=== PATIENT | female | born 1945 | race Caucasian/White ===

== ENCOUNTER 2017-03-14 01:31 | Inpatient (IN) | payer MEDICARE, OTHER ==
[~2017-03-14] VITALS: Ht 170.2 cm; Wt 73.7 kg
[2017-03-14 01:53] LABS: HEMATOCRIT 41.9 % (34.6-47.8); HEMOGLOBIN 13.9 g/dL (11.7-16.4)
[2017-03-14] MEDS ORDERED: SODIUM CHLORIDE 0.9% 1,000ML IVBOLUS ONE (02:00)
[2017-03-14] MEDS ORDERED: THIAMINE 100MG TABLET PO ONE (02:00)
[2017-03-14 02:05] LABS: ASPARTATE AMINO TRANSFERASE 23 U/L (15-37); BLOOD UREA NITROGEN 32 mg/dL (7-18)
[2017-03-14 02:09] LABS: ACETAMINOPHEN < 2 mcg/mL (10-30)
[2017-03-14] MEDS ORDERED: THIAMINE 100MG TABLET ONE (02:11)
[2017-03-14 04:18] LABS: DAU SCREEN DISCLAIMER
[2017-03-14] MEDS ORDERED: ONDANSETRON 2MG/ML, 2ML IVPush PRN (04:30)
[2017-03-14] MEDS ORDERED: POTASSIUM CHLORIDE 20 MEQ in SODIUM CHLORIDE 0.9% 1,000 ML IV SCH (04:30)
[2017-03-14] MEDS ORDERED: BISACODYL 10 MG SUPP PR PRN (04:30)
[2017-03-14] MEDS ORDERED: POLYETHYLENE GLYCOL 17 GM PACKET PO PRN (04:30)
[2017-03-14] MEDS ORDERED: ACETAMINOPHEN 325 MG TABLET PO PRN (04:30)
[2017-03-14] MEDS ORDERED: DOCUSATE 100 MG CAPSULE PO PRN (04:30)
[2017-03-14 04:39] VITALS: BP 157/85
[2017-03-14] MEDS: ENOXAPARIN 40 MG/0.4 ML SQ SCH (05:11)
[2017-03-14 08:05] VITALS: BP 148/85
[2017-03-14] MEDS ORDERED: CEFTRIAXONE PMX 1GM/50ML 50 ML IV SCH (10:30)
[2017-03-14 13:00] VITALS: BP 144/86
[2017-03-14] MEDS: CIPROFLOXACIN 250 MG TABLET PO SCH (13:40)
[2017-03-14 18:35] VITALS: BP 165/94
[2017-03-15 00:35] VITALS: BP 142/79
[2017-03-15] MEDS: CIPROFLOXACIN 250 MG TABLET PO SCH ×2 (01:39→13:57)
[2017-03-15 05:22] LABS: HEMATOCRIT 39.9 % (34.6-47.8); HEMOGLOBIN 13.4 g/dL (11.7-16.4); WHITE BLOOD COUNT 6.9 x10^3/uL (3.4-10)
[2017-03-15 05:31] LABS: BLOOD UREA NITROGEN 26 mg/dL (7-18)
[2017-03-15] MEDS: ENOXAPARIN 40 MG/0.4 ML SQ SCH (07:36)
[2017-03-15 07:45] VITALS: BP 128/66
[2017-03-15] MEDS ORDERED: HALOPERIDOL 5 MG/ML IV PRN (10:30)
[2017-03-15 13:12] VITALS: BP 156/89
[2017-03-15 18:52] VITALS: BP 137/72
[2017-03-16] MEDS: CIPROFLOXACIN 250 MG TABLET PO SCH ×2 (01:00→14:00)
[2017-03-16 02:22] VITALS: BP 127/75
[2017-03-16 07:30] VITALS: BP 160/95
[2017-03-16] MEDS: ENOXAPARIN 40 MG/0.4 ML SQ SCH (08:52)
[2017-03-16 13:22] VITALS: BP 145/83
[2017-03-16 18:57] VITALS: BP 139/90
[2017-03-17 00:23] VITALS: BP 128/69
[2017-03-17] MEDS: CIPROFLOXACIN 250 MG TABLET PO SCH (02:28)
[2017-03-17 08:04] VITALS: BP 163/84
[2017-03-17] MEDS: ENOXAPARIN 40 MG/0.4 ML SQ SCH (08:08)
[2017-03-17 14:30] VITALS: BP 146/83
[2017-03-17 19:49] VITALS: BP 181/98
[2017-03-17] MEDS: AMOXICILLIN/CLAV 875-125MG TABLET PO SCH (20:30)
[2017-03-18 01:06] VITALS: BP 138/72
[2017-03-18 07:08] VITALS: BP 135/73
[2017-03-18] MEDS: ENOXAPARIN 40 MG/0.4 ML SQ SCH (08:37)
[2017-03-18] MEDS: AMOXICILLIN/CLAV 875-125MG TABLET PO SCH ×2 (08:37→22:30)
[2017-03-18 14:08] VITALS: BP 133/87
[2017-03-18] MEDS ORDERED: BISACODYL 10 MG SUPP PR PRN (14:30)
[2017-03-18] MEDS ORDERED: POLYETHYLENE GLYCOL 17 GM PACKET PO PRN (14:30)
[2017-03-18] MEDS ORDERED: ONDANSETRON 2MG/ML, 2ML IVPush PRN (14:30)
[2017-03-18] MEDS ORDERED: HALOPERIDOL 5 MG/ML IV PRN (14:30)
[2017-03-18] MEDS ORDERED: ACETAMINOPHEN 325 MG TABLET PO PRN (14:30)
[2017-03-18] MEDS ORDERED: DOCUSATE 100 MG CAPSULE PO PRN (14:30)
[2017-03-18 19:11] VITALS: BP 181/96
[2017-03-19 01:30] VITALS: BP 144/72
[2017-03-19 07:25] VITALS: BP 135/85
[2017-03-19] MEDS: ENOXAPARIN 40 MG/0.4 ML SQ SCH (08:00)
[2017-03-19] MEDS: AMOXICILLIN/CLAV 875-125MG TABLET PO SCH ×2 (09:25→20:06)
[2017-03-19 12:41] VITALS: BP 172/97
[2017-03-19 19:17] VITALS: BP 184/87
[2017-03-19 19:58] VITALS: BP 171/85
[2017-03-20 03:57] VITALS: BP 123/76
[2017-03-20 06:58] VITALS: BP 138/70
[2017-03-20] MEDS: ENOXAPARIN 40 MG/0.4 ML SQ SCH (08:00)
[2017-03-20] MEDS: AMOXICILLIN/CLAV 875-125MG TABLET PO SCH ×2 (08:58→21:22)
[2017-03-20 13:25] VITALS: BP 151/71
[2017-03-20 19:10] VITALS: BP 161/87
[2017-03-21 01:10] VITALS: BP 152/80
[2017-03-21 07:33] VITALS: BP 132/79
[2017-03-21] MEDS: ENOXAPARIN 40 MG/0.4 ML SQ SCH (07:49)
[2017-03-21] MEDS: AMOXICILLIN/CLAV 875-125MG TABLET PO SCH ×2 (07:49→20:14)
[2017-03-21 13:14] VITALS: BP 115/72
[2017-03-21 19:32] VITALS: BP 136/80
[2017-03-22 00:55] VITALS: BP 128/77
[2017-03-22] MEDS: ENOXAPARIN 40 MG/0.4 ML SQ SCH (08:05)
[2017-03-22] MEDS: AMOXICILLIN/CLAV 875-125MG TABLET PO SCH ×2 (08:05→20:16)
[2017-03-22 08:14] VITALS: BP 148/83
[2017-03-22 12:35] VITALS: BP 124/82
[2017-03-22 18:59] VITALS: BP 156/80
[2017-03-23 00:31] VITALS: BP 129/80
[2017-03-23] MEDS: ENOXAPARIN 40 MG/0.4 ML SQ SCH (08:02)
[2017-03-23] MEDS: AMOXICILLIN/CLAV 875-125MG TABLET PO SCH ×2 (08:02→20:59)
[2017-03-23 08:28] VITALS: BP 125/80
[2017-03-23 12:54] VITALS: BP 134/83
[2017-03-23 19:33] VITALS: BP 126/74
[2017-03-24 01:28] VITALS: BP 133/80
[2017-03-24 07:46] VITALS: BP 123/71
[2017-03-24] MEDS: AMOXICILLIN/CLAV 875-125MG TABLET PO SCH ×2 (08:29→21:01)
[2017-03-24] MEDS: ENOXAPARIN 40 MG/0.4 ML SQ SCH (08:30)
[2017-03-24 13:16] VITALS: BP 113/74
[2017-03-24 19:26] VITALS: BP 146/89
[2017-03-25 00:48] VITALS: BP 131/84
[2017-03-25 07:01] VITALS: BP 122/74
[2017-03-25] MEDS: AMOXICILLIN/CLAV 875-125MG TABLET PO SCH ×2 (08:26→21:03)
[2017-03-25] MEDS: ENOXAPARIN 40 MG/0.4 ML SQ SCH (08:26)
[2017-03-25 13:30] VITALS: BP 139/80
[2017-03-25 18:56] VITALS: BP 126/75
[2017-03-25] MEDS ORDERED: ACETAMINOPHEN 325 MG TABLET PO PRN (20:00)
[2017-03-25] MEDS ORDERED: BISACODYL 10 MG SUPP PR PRN (20:00)
[2017-03-25] MEDS ORDERED: DOCUSATE 100 MG CAPSULE PO PRN (20:00)
[2017-03-25] MEDS ORDERED: ONDANSETRON 2MG/ML, 2ML IVPush PRN (20:00)
[2017-03-26 01:00] VITALS: BP 125/76
[2017-03-26 07:25] VITALS: BP 127/72
[2017-03-26] MEDS: ENOXAPARIN 40 MG/0.4 ML SQ SCH (08:00)
[2017-03-26] MEDS: AMOXICILLIN/CLAV 875-125MG TABLET PO SCH ×2 (09:42→19:34)
[2017-03-26 13:50] VITALS: BP 132/85
[2017-03-26 19:13] VITALS: BP 164/92
[2017-03-27 01:22] VITALS: BP 115/71
[2017-03-27 06:40] VITALS: BP 114/68
[2017-03-27] MEDS: ENOXAPARIN 40 MG/0.4 ML SQ SCH (07:38)
[2017-03-27] MEDS: AMOXICILLIN/CLAV 875-125MG TABLET PO SCH ×2 (07:38→19:59)
[2017-03-27 13:15] VITALS: BP 135/81
[2017-03-27 19:13] VITALS: BP 159/82
[2017-03-28 02:00] VITALS: BP 164/88
[2017-03-28 07:05] VITALS: BP 125/72
[2017-03-28] MEDS: AMOXICILLIN/CLAV 875-125MG TABLET PO SCH ×2 (08:10→19:50)
[2017-03-28] MEDS: ENOXAPARIN 40 MG/0.4 ML SQ SCH (08:10)
[2017-03-28 13:19] VITALS: BP 129/85
[2017-03-28 20:00] VITALS: BP 153/88
[2017-03-29 00:58] VITALS: BP 117/74
[2017-03-29 06:50] VITALS: BP 122/69
[2017-03-29] MEDS: AMOXICILLIN/CLAV 875-125MG TABLET PO SCH ×2 (08:09→20:02)
[2017-03-29] MEDS: ENOXAPARIN 40 MG/0.4 ML SQ SCH (08:09)
[2017-03-29 14:37] VITALS: BP 127/72
[2017-03-29 19:24] VITALS: BP 136/73
[2017-03-30 02:20] VITALS: BP 118/69
[2017-03-30 07:00] VITALS: BP 122/74
[2017-03-30] MEDS: AMOXICILLIN/CLAV 875-125MG TABLET PO SCH ×2 (09:15→20:15)
[2017-03-30] MEDS: ENOXAPARIN 40 MG/0.4 ML SQ SCH (09:15)
[2017-03-30 13:44] VITALS: BP 129/81
[2017-03-30 18:37] VITALS: BP 144/84
[2017-03-31 01:51] VITALS: BP 132/84
[2017-03-31 08:30] VITALS: BP 124/72
[2017-03-31] MEDS: ENOXAPARIN 40 MG/0.4 ML SQ SCH (08:38)
[2017-03-31] MEDS: AMOXICILLIN/CLAV 875-125MG TABLET PO SCH ×2 (08:39→21:31)
[2017-03-31 13:45] VITALS: BP 147/80
[2017-03-31 18:46] VITALS: BP 135/79
[2017-04-01 01:51] VITALS: BP 116/70
[2017-04-01 06:41] VITALS: BP 118/66
[2017-04-01] MEDS: ENOXAPARIN 40 MG/0.4 ML SQ SCH (08:46)
[2017-04-01] MEDS: AMOXICILLIN/CLAV 875-125MG TABLET PO SCH ×2 (08:46→20:03)
[2017-04-01 13:13] VITALS: BP 115/75
[2017-04-01] MEDS ORDERED: ACETAMINOPHEN 325 MG TABLET PO PRN (14:30)
[2017-04-01] MEDS ORDERED: ONDANSETRON 2MG/ML, 2ML IVPush PRN (14:30)
[2017-04-01] MEDS ORDERED: BISACODYL 10 MG SUPP PR PRN (14:30)
[2017-04-01] MEDS ORDERED: DOCUSATE 100 MG CAPSULE PO PRN (14:30)
[2017-04-01] MEDS ORDERED: POLYETHYLENE GLYCOL 17 GM PACKET PO PRN (14:30)
[2017-04-01 19:15] VITALS: BP 144/82
[2017-04-02 01:08] VITALS: BP 124/78
[2017-04-02 01:18] VITALS: BP 151/88
[2017-04-02 06:55] VITALS: BP 129/74
[2017-04-02] MEDS: ENOXAPARIN 40 MG/0.4 ML SQ SCH (07:45)
[2017-04-02] MEDS: AMOXICILLIN/CLAV 875-125MG TABLET PO SCH ×2 (07:45→21:03)
[2017-04-02 12:45] VITALS: BP_SYST 106; BP_SYST 126; BP_DIAS 63; BP_DIAS 85
[2017-04-02 19:12] VITALS: BP 124/78
[2017-04-03 01:18] VITALS: BP 138/82
[2017-04-03 07:18] VITALS: BP 127/77
[2017-04-03] MEDS: ENOXAPARIN 40 MG/0.4 ML SQ SCH (09:43)
[2017-04-03] MEDS: AMOXICILLIN/CLAV 875-125MG TABLET PO SCH ×2 (09:43→21:33)
[2017-04-03 12:37] VITALS: BP 145/83
[2017-04-03 19:52] VITALS: BP 125/77
[2017-04-04 01:05] VITALS: BP 125/78
[2017-04-04 07:36] VITALS: BP 114/68
[2017-04-04] MEDS: AMOXICILLIN/CLAV 875-125MG TABLET PO SCH ×2 (10:00→22:14)
[2017-04-04] MEDS: ENOXAPARIN 40 MG/0.4 ML SQ SCH (10:00)
[2017-04-04 13:57] VITALS: BP 142/85
[2017-04-04 19:03] VITALS: BP 129/76
[2017-04-05 03:09] VITALS: BP 114/66
[2017-04-05 07:56] VITALS: BP 119/67
[2017-04-05] MEDS: AMOXICILLIN/CLAV 875-125MG TABLET PO SCH ×2 (08:26→20:13)
[2017-04-05] MEDS: ENOXAPARIN 40 MG/0.4 ML SQ SCH (08:27)
[2017-04-05 12:03] VITALS: BP 157/80
[2017-04-05 20:16] VITALS: BP 142/80
[2017-04-06 03:25] VITALS: BP 125/69
[2017-04-06 07:44] VITALS: BP 124/66
[2017-04-06] MEDS: AMOXICILLIN/CLAV 875-125MG TABLET PO SCH ×2 (08:59→19:48)
[2017-04-06] MEDS: ENOXAPARIN 40 MG/0.4 ML SQ SCH (08:59)
[2017-04-06 12:00] VITALS: BP 109/67
[2017-04-06 20:58] VITALS: BP 127/76
[2017-04-07 01:51] VITALS: BP 121/72
[2017-04-07 06:50] VITALS: BP 122/75
[2017-04-07] MEDS: ENOXAPARIN 40 MG/0.4 ML SQ SCH (08:55)
[2017-04-07] MEDS: AMOXICILLIN/CLAV 875-125MG TABLET PO SCH ×2 (08:55→20:00)
[2017-04-07 13:00] VITALS: BP 137/84
[2017-04-07 18:52] VITALS: BP 128/80
[2017-04-08 02:01] VITALS: BP 125/75
[2017-04-08 06:33] VITALS: BP 118/68
[2017-04-08] MEDS: ENOXAPARIN 40 MG/0.4 ML SQ SCH (09:25)
[2017-04-08] MEDS: AMOXICILLIN/CLAV 875-125MG TABLET PO SCH (09:25)
[2017-04-08 14:16] VITALS: BP 126/80
[2017-04-08 19:39] VITALS: BP 152/93
[2017-04-09 02:16] VITALS: BP 133/74
[2017-04-09 05:34] LABS: BLOOD UREA NITROGEN 22 mg/dL (7-18)
[2017-04-09 05:52] LABS: HEMATOCRIT 39.2 % (34.6-47.8); HEMOGLOBIN 13.3 g/dL (11.7-16.4)
[2017-04-09 06:48] VITALS: BP 130/75
[2017-04-09] MEDS: ENOXAPARIN 40 MG/0.4 ML SQ SCH (11:34)
[2017-04-09 13:10] VITALS: BP 157/98
[2017-04-09 19:53] VITALS: BP 151/85
[2017-04-10 02:56] VITALS: BP 112/69
[2017-04-10 06:48] VITALS: BP 114/67
[2017-04-10] MEDS: ENOXAPARIN 40 MG/0.4 ML SQ SCH (11:05)
[2017-04-10 13:35] VITALS: BP 149/87
[2017-04-10 20:16] VITALS: BP 148/84
[2017-04-11 01:16] VITALS: BP 134/78
[2017-04-11 06:41] VITALS: BP 131/77
[2017-04-11] MEDS: ENOXAPARIN 40 MG/0.4 ML SQ SCH (10:00)
[2017-04-11 12:45] VITALS: BP 149/91
[2017-04-11 19:05] VITALS: BP 122/80
[2017-04-12 01:55] VITALS: BP 122/76
[2017-04-12 07:47] VITALS: BP 120/73
[2017-04-12] MEDS: ENOXAPARIN 40 MG/0.4 ML SQ SCH (10:00)
[2017-04-12 13:01] VITALS: BP 137/83
[2017-04-12 19:05] VITALS: BP 146/88
[2017-04-13 01:37] VITALS: BP 152/82
[2017-04-13 06:38] VITALS: BP 126/75
[2017-04-13] MEDS: ENOXAPARIN 40 MG/0.4 ML SQ SCH (08:25)
[2017-04-13 12:43] VITALS: BP 145/84
[2017-04-13 18:23] VITALS: BP 132/79
[2017-04-14 01:58] VITALS: BP 132/78
[2017-04-14 06:48] VITALS: BP 159/90
[2017-04-14] MEDS: ENOXAPARIN 40 MG/0.4 ML SQ SCH (08:35)
[2017-04-14 12:53] VITALS: BP 164/98
[2017-04-14 18:52] VITALS: BP 156/95
[2017-04-15 01:29] VITALS: BP 110/68
[2017-04-15] MEDS ORDERED: DOCUSATE 100 MG CAPSULE PO PRN (01:30)
[2017-04-15] MEDS ORDERED: ACETAMINOPHEN 325 MG TABLET PO PRN (01:30)
[2017-04-15] MEDS ORDERED: ONDANSETRON 2MG/ML, 2ML IVPush PRN (01:30)
[2017-04-15] MEDS ORDERED: POLYETHYLENE GLYCOL 17 GM PACKET PO PRN (01:30)
[2017-04-15] MEDS ORDERED: BISACODYL 10 MG SUPP PR PRN (01:30)
[2017-04-15 07:20] VITALS: BP 130/81
[2017-04-15] MEDS: ENOXAPARIN 40 MG/0.4 ML SQ SCH (10:15)
[2017-04-15 15:43] VITALS: BP 148/82
[2017-04-15 18:49] VITALS: BP 149/83
[2017-04-16 03:06] VITALS: BP 121/73
[2017-04-16] MEDS: ENOXAPARIN 40 MG/0.4 ML SQ SCH (09:21)
[2017-04-16 09:36] VITALS: BP 131/81
[2017-04-16 14:46] VITALS: BP 123/79
[2017-04-16 19:43] VITALS: BP 161/91
[2017-04-17 03:06] VITALS: BP 112/69
[2017-04-17 08:10] VITALS: BP 129/79
[2017-04-17] MEDS: ENOXAPARIN 40 MG/0.4 ML SQ SCH (10:00)
[2017-04-17 14:40] VITALS: BP 148/92
[2017-04-17 19:59] VITALS: BP 128/75
[2017-04-18 02:59] VITALS: BP 131/81
[2017-04-18 08:05] VITALS: BP 123/77
[2017-04-18 14:00] VITALS: BP 132/84
[2017-04-18 19:48] VITALS: BP 148/88
[2017-04-19 02:01] VITALS: BP 121/73
[2017-04-19 06:42] VITALS: BP 118/74
[2017-04-19] MEDS: ENOXAPARIN 40 MG/0.4 ML SQ SCH (09:09)
[2017-04-19 15:00] VITALS: BP 147/81
[2017-04-19 19:12] VITALS: BP 134/76
[2017-04-20 02:15] VITALS: BP 103/61
[2017-04-20 07:44] VITALS: BP 110/67
[2017-04-20] MEDS: ENOXAPARIN 40 MG/0.4 ML SQ SCH (10:20)
[2017-04-20 13:35] VITALS: BP 137/87
[2017-04-20 20:35] VITALS: BP 112/69
[2017-04-21 03:31] VITALS: BP 132/75
[2017-04-21 08:23] VITALS: BP 138/78
[2017-04-21 13:31] VITALS: BP 131/83
[2017-04-21 20:07] VITALS: BP 150/89
[2017-04-22 01:54] VITALS: BP 112/75
[2017-04-22 07:28] VITALS: BP 107/68
[2017-04-22] MEDS: ENOXAPARIN 40 MG/0.4 ML SQ SCH (08:54)
[2017-04-22 13:43] VITALS: BP 123/84
[2017-04-22] MEDS ORDERED: POLYETHYLENE GLYCOL 17 GM PACKET PO PRN (19:30)
[2017-04-22] MEDS ORDERED: ONDANSETRON 2MG/ML, 2ML IVPush PRN (19:30)
[2017-04-22] MEDS ORDERED: ACETAMINOPHEN 325 MG TABLET PO PRN (19:30)
[2017-04-22] MEDS ORDERED: BISACODYL 10 MG SUPP PR PRN (19:30)
[2017-04-22] MEDS ORDERED: DOCUSATE 100 MG CAPSULE PO PRN (19:30)
[2017-04-22 19:57] VITALS: BP 106/70
[2017-04-23 01:39] VITALS: BP 111/74
[2017-04-23 08:24] VITALS: BP 110/53
[2017-04-23] MEDS: ENOXAPARIN 40 MG/0.4 ML SQ SCH (10:06)
[2017-04-23 13:54] VITALS: BP 136/89
[2017-04-23 20:09] VITALS: BP 154/51
[2017-04-24 02:10] VITALS: BP 122/61
[2017-04-24 07:09] VITALS: BP 112/56
[2017-04-24] MEDS: ENOXAPARIN 40 MG/0.4 ML SQ SCH (09:59)
[2017-04-24 15:03] VITALS: BP 118/74
[2017-04-24 20:00] VITALS: BP 126/77
[2017-04-25 01:14] VITALS: BP 111/70
[2017-04-25 08:01] VITALS: BP 118/74
[2017-04-25] MEDS: ENOXAPARIN 40 MG/0.4 ML SQ SCH (09:02)
[2017-04-25 13:01] VITALS: BP 146/85
[2017-04-25 20:16] VITALS: BP 129/83
[2017-04-26 03:05] VITALS: BP 106/65
[2017-04-26 08:41] VITALS: BP 112/68
[2017-04-26] MEDS: ENOXAPARIN 40 MG/0.4 ML SQ SCH (10:21)
[2017-04-26 13:28] VITALS: BP 131/77
[2017-04-26 16:44] LABS: PPD INJECT PLACED
[2017-04-26 20:45] VITALS: BP 127/76
[2017-04-27 03:45] VITALS: BP 121/81
[2017-04-27 07:54] VITALS: BP 124/80
[2017-04-27 14:21] VITALS: BP 126/82
[2017-04-27 21:20] VITALS: BP 114/71
[2017-04-28 02:26] VITALS: BP 148/78
[2017-04-28 10:21] VITALS: BP 127/79
[2017-04-28 13:56] VITALS: BP 126/83
[2017-04-28 16:58] LABS: TUBERCULIN 48 HOUR READ 0 mm (< 5)
[2017-04-28] MEDS ORDERED: ACETAMINOPHEN 325 MG TABLET PO PRN (17:30)
[2017-04-28] MEDS ORDERED: BISACODYL 10 MG SUPP PR PRN (17:30)
[2017-04-28] MEDS ORDERED: POLYETHYLENE GLYCOL 17 GM PACKET PO PRN (17:30)
[2017-04-28] MEDS ORDERED: DOCUSATE 100 MG CAPSULE PO PRN (17:30)
[2017-04-28] MEDS ORDERED: ONDANSETRON 2MG/ML, 2ML IVPush PRN (17:30)
[2017-04-28 20:08] VITALS: BP 118/69
[2017-04-29 02:10] VITALS: BP 108/62
[2017-04-29 07:40] VITALS: BP 122/72
[2017-04-29 14:14] VITALS: BP 135/79
[2017-04-29 15:04] LABS: TUBERCULIN 72 HOUR READ 0 mm (< 5)
[2017-04-30 08:47] VITALS: BP 114/67
[2017-04-30 14:16] VITALS: BP 154/85
[2017-04-30 20:27] VITALS: BP 116/70
[2017-05-01 01:31] VITALS: BP 123/75
[2017-05-01 07:50] VITALS: BP 120/69
[2017-05-01 12:58] VITALS: BP 131/81
[2017-05-01] MEDS ORDERED: ARTIFICIAL TEARS OPHTH SOLN 15ML EACHEYE PRN (14:00)
[2017-05-01 19:47] VITALS: BP 131/81
[2017-05-02 01:09] VITALS: BP 131/70
[2017-05-02 07:20] VITALS: BP 131/60
[2017-05-02 13:31] VITALS: BP 144/82
[2017-05-02 18:45] VITALS: BP 148/84
[2017-05-03 01:40] VITALS: BP 113/66
[2017-05-03 07:52] VITALS: BP 124/73
[2017-05-03 13:56] VITALS: BP 143/94
[2017-05-03 20:22] VITALS: BP 155/82
[2017-05-04 03:05] VITALS: BP 118/68
[2017-05-04 08:00] VITALS: BP 120/70
[2017-05-04 13:48] VITALS: BP_SYST 150; BP_SYST 162; BP_DIAS 79; BP_DIAS 80
[2017-05-04 19:10] VITALS: BP 151/89
[2017-05-05 04:15] VITALS: BP 126/86
[2017-05-05 07:02] VITALS: BP 118/73
[2017-05-05 13:13] VITALS: BP 155/85
[2017-05-05 19:55] VITALS: BP 139/82
[2017-05-06 02:00] VITALS: BP 104/64
[2017-05-06 10:45] VITALS: BP 147/78
[2017-05-06 13:23] VITALS: BP 148/90
[2017-05-06 19:29] VITALS: BP 127/77
[2017-05-06] MEDS ORDERED: POLYETHYLENE GLYCOL 17 GM PACKET PO PRN (21:30)
[2017-05-06] MEDS ORDERED: DOCUSATE 100 MG CAPSULE PO PRN (21:30)
[2017-05-06] MEDS ORDERED: BISACODYL 10 MG SUPP PR PRN (21:30)
[2017-05-06] MEDS ORDERED: ONDANSETRON 2MG/ML, 2ML IVPush PRN (21:30)
[2017-05-06] MEDS ORDERED: ACETAMINOPHEN 325 MG TABLET PO PRN (21:30)
[2017-05-07 01:02] VITALS: BP 106/59
[2017-05-07 07:32] VITALS: BP 121/75
[2017-05-07 14:40] VITALS: BP 128/78
[2017-05-07 20:14] VITALS: BP 125/76
[2017-05-08 01:25] VITALS: BP 104/63
[2017-05-08 07:50] VITALS: BP 110/68
[2017-05-08 14:11] VITALS: BP 128/74
[2017-05-08 19:16] VITALS: BP 159/96
[2017-05-09 01:12] VITALS: BP 111/65
[2017-05-09 08:13] VITALS: BP 132/76
[2017-05-09 14:15] VITALS: BP 129/86
[2017-05-09 19:31] VITALS: BP 118/75
[2017-05-10 04:23] VITALS: BP 114/65
[2017-05-10 07:34] VITALS: BP 123/73
[2017-05-10 13:35] VITALS: BP 125/80
[2017-05-10 19:35] VITALS: BP 138/79
[2017-05-11 02:25] VITALS: BP 126/72
[2017-05-11 07:09] VITALS: BP 125/75
[2017-05-11 12:24] VITALS: BP 150/82
[2017-05-11 19:35] VITALS: BP 126/76
[2017-05-12 01:45] VITALS: BP 122/67
[2017-05-12 07:24] VITALS: BP 139/88
[2017-05-12 12:33] VITALS: BP 153/88
[2017-05-12 19:57] VITALS: BP 128/74
[2017-05-13 02:13] VITALS: BP 131/78
[2017-05-13 07:49] VITALS: BP 115/66
[2017-05-13 14:40] VITALS: BP 172/85
[2017-05-13] MEDS ORDERED: DOCUSATE 100 MG CAPSULE PO PRN (19:00)
[2017-05-13] MEDS ORDERED: BISACODYL 10 MG SUPP PR PRN (19:00)
[2017-05-13] MEDS ORDERED: POLYETHYLENE GLYCOL 17 GM PACKET PO PRN (19:00)
[2017-05-13] MEDS ORDERED: ONDANSETRON 2MG/ML, 2ML IVPush PRN (19:00)
[2017-05-13] MEDS ORDERED: ACETAMINOPHEN 325 MG TABLET PO PRN (19:00)
[2017-05-13 19:55] VITALS: BP 147/89
[2017-05-14 01:50] VITALS: BP 125/74
[2017-05-14 08:09] VITALS: BP 115/74
[2017-05-14 14:34] VITALS: BP 134/84
[2017-05-14 19:40] VITALS: BP 131/86
[2017-05-15 02:59] VITALS: BP 104/59
[2017-05-15 08:21] VITALS: BP 114/69
[2017-05-15 15:10] VITALS: BP 142/84
[2017-05-15 19:18] VITALS: BP 150/88
[2017-05-16 01:51] VITALS: BP 123/69
[2017-05-16 09:14] VITALS: BP 114/69
[2017-05-16 14:14] VITALS: BP 131/80
[2017-05-16 19:15] VITALS: BP 121/67
[2017-05-17 03:50] VITALS: BP 107/60
[2017-05-17 07:12] VITALS: BP 110/61
[2017-05-17 13:01] VITALS: BP 136/88
[2017-05-17 19:45] VITALS: BP 159/83
[2017-05-18 03:15] VITALS: BP 115/73
[2017-05-18 07:08] VITALS: BP 116/72
[2017-05-18 13:10] VITALS: BP 147/88
[2017-05-18 20:24] VITALS: BP 143/86
[2017-05-19 02:25] VITALS: BP 114/74
[2017-05-19 07:05] VITALS: BP 108/67
[2017-05-19 13:36] VITALS: BP 132/80
[2017-05-19 19:24] VITALS: BP 143/87
[2017-05-19] MEDS: ARTIFICIAL TEARS OPHTH SOLN 15ML EACHEYE PRN (19:38)
[2017-05-19] MEDS ORDERED: DOCUSATE 100 MG CAPSULE PO PRN (21:00)
[2017-05-19] MEDS ORDERED: ACETAMINOPHEN 325 MG TABLET PO PRN (21:00)
[2017-05-19] MEDS ORDERED: POLYETHYLENE GLYCOL 17 GM PACKET PO PRN (21:00)
[2017-05-19] MEDS ORDERED: BISACODYL 10 MG SUPP PR PRN (21:00)
[2017-05-19] MEDS ORDERED: ONDANSETRON 2MG/ML, 2ML IVPush PRN (21:00)
[2017-05-20 01:20] VITALS: BP 121/75
[2017-05-20 08:28] VITALS: BP 116/65
[2017-05-20 12:56] VITALS: BP 120/80
[2017-05-20 20:34] VITALS: BP 98/60
[2017-05-21 03:33] VITALS: BP 112/70
[2017-05-21 08:38] VITALS: BP 110/60
[2017-05-21 15:30] VITALS: BP 136/78
[2017-05-21 19:34] VITALS: BP 129/82
[2017-05-22 01:10] VITALS: BP 121/76
[2017-05-22 08:22] VITALS: BP 146/85
[2017-05-22 13:29] VITALS: BP 127/83
[2017-05-22 20:46] VITALS: BP 114/73
[2017-05-23 01:46] VITALS: BP 112/70
[2017-05-23 06:51] VITALS: BP 137/83
[2017-05-23 12:57] VITALS: BP 159/98
[2017-05-23 19:19] VITALS: BP 127/75
[2017-05-24 02:46] VITALS: BP 117/71
[2017-05-24 07:19] VITALS: BP 125/71
[2017-05-24 15:47] VITALS: BP 130/85
[2017-05-24 18:33] VITALS: BP 148/83
[2017-05-25 02:50] VITALS: BP 132/72
[2017-05-25 07:51] VITALS: BP 107/67
[2017-05-25 13:57] VITALS: BP 124/83
[2017-05-25 18:44] VITALS: BP 156/82
[2017-05-26 02:48] VITALS: BP 140/75
[2017-05-26 07:12] VITALS: BP 113/73
[2017-05-26 13:11] VITALS: BP 134/87
[2017-05-26 18:48] VITALS: BP 143/87
[2017-05-27 00:55] VITALS: BP 135/72
[2017-05-27 08:35] VITALS: BP 145/79
[2017-05-27 14:22] VITALS: BP 115/76
[2017-05-27] MEDS ORDERED: BISACODYL 10 MG SUPP PR PRN (15:30)
[2017-05-27] MEDS ORDERED: ACETAMINOPHEN 325 MG TABLET PO PRN (15:30)
[2017-05-27] MEDS ORDERED: POLYETHYLENE GLYCOL 17 GM PACKET PO PRN (15:30)
[2017-05-27] MEDS ORDERED: DOCUSATE 100 MG CAPSULE PO PRN (15:30)
[2017-05-27] MEDS ORDERED: ONDANSETRON 2MG/ML, 2ML IVPush PRN (15:30)
[2017-05-27 19:25] VITALS: BP 150/83
[2017-05-27] MEDS: ARTIFICIAL TEARS OPHTH SOLN 15ML EACHEYE PRN (20:32)
[2017-05-28 01:14] VITALS: BP 119/81
[2017-05-28 07:43] VITALS: BP 117/66
[2017-05-28 14:57] VITALS: BP 130/73
[2017-05-28 19:06] VITALS: BP 157/95
[2017-05-29 02:03] VITALS: BP 121/73
[2017-05-29 06:50] VITALS: BP 120/74
[2017-05-29 13:00] VITALS: BP 124/71
[2017-05-29 19:25] VITALS: BP 162/83
[2017-05-30 02:07] VITALS: BP 123/74
[2017-05-30 06:41] VITALS: BP 126/76
[2017-05-30 12:45] VITALS: BP 147/94
[2017-05-30 18:34] VITALS: BP 163/88
[2017-05-30 20:17] VITALS: BP 134/78
[2017-05-31 02:52] VITALS: BP 112/67
[2017-05-31 07:42] VITALS: BP 127/81
[2017-05-31 14:22] VITALS: BP 137/81
[2017-05-31 19:05] VITALS: BP 132/84
[2017-06-01 02:42] VITALS: BP 116/66
[2017-06-01 06:44] VITALS: BP 119/72
[2017-06-01 14:13] VITALS: BP 163/96
[2017-06-01 19:58] VITALS: BP 130/76
[2017-06-02 00:52] VITALS: BP 123/75
[2017-06-02 10:20] VITALS: BP 135/90
[2017-06-02 14:32] VITALS: BP 157/90
[2017-06-02 18:57] VITALS: BP 130/77
[2017-06-03 01:04] VITALS: BP 145/82
[2017-06-03 06:49] VITALS: BP 122/62
[2017-06-03 13:25] VITALS: BP 136/84
[2017-06-03] MEDS ORDERED: ACETAMINOPHEN 325 MG TABLET PO PRN (18:30)
[2017-06-03] MEDS ORDERED: ONDANSETRON 2MG/ML, 2ML IVPush PRN (18:30)
[2017-06-03] MEDS ORDERED: BISACODYL 10 MG SUPP PR PRN (18:30)
[2017-06-03] MEDS ORDERED: DOCUSATE 100 MG CAPSULE PO PRN (18:30)
[2017-06-03] MEDS ORDERED: POLYETHYLENE GLYCOL 17 GM PACKET PO PRN (18:30)
[2017-06-03 18:52] VITALS: BP 141/87
[2017-06-04 01:07] VITALS: BP 128/73
[2017-06-04 06:31] VITALS: BP 130/76
[2017-06-04 11:58] VITALS: BP 153/88
[2017-06-04 12:00] VITALS: BP 153/88
[2017-06-04 19:04] VITALS: BP 154/85
[2017-06-05 00:54] VITALS: BP 133/76
[2017-06-05 06:44] VITALS: BP 126/77
[2017-06-05 12:16] VITALS: BP 132/87
[2017-06-05 19:09] VITALS: BP 142/82
[2017-06-06 00:49] VITALS: BP 129/71
[2017-06-06 08:32] VITALS: BP 119/73
[2017-06-06 14:36] VITALS: BP 149/86
[2017-06-06 18:51] VITALS: BP 143/82
[2017-06-07 01:45] VITALS: BP 118/68
[2017-06-07 06:45] VITALS: BP 126/75
[2017-06-07 07:00] VITALS: BP 126/75
[2017-06-07 15:44] VITALS: BP 136/81
[2017-06-07 19:14] VITALS: BP 125/78
[2017-06-08 01:40] VITALS: BP 116/68
[2017-06-08 08:24] VITALS: BP 134/78
[2017-06-08 14:17] VITALS: BP 143/90
[2017-06-08 18:30] VITALS: BP 149/89
[2017-06-09 01:43] VITALS: BP 117/71
[2017-06-09 07:20] VITALS: BP 113/71
[2017-06-09 13:35] VITALS: BP 142/80
[2017-06-09] MEDS ORDERED: ACETAMINOPHEN 325 MG TABLET PO PRN (19:30)
[2017-06-09] MEDS ORDERED: BISACODYL 10 MG SUPP PR PRN (19:30)
[2017-06-09] MEDS ORDERED: POLYETHYLENE GLYCOL 17 GM PACKET PO PRN (19:30)
[2017-06-09] MEDS ORDERED: DOCUSATE 100 MG CAPSULE PO PRN (19:30)
[2017-06-09] MEDS ORDERED: ONDANSETRON 2MG/ML, 2ML IVPush PRN (19:30)
[2017-06-09 19:58] VITALS: BP 143/84
[2017-06-10 02:22] VITALS: BP 142/82
[2017-06-10 06:51] VITALS: BP 133/75
[2017-06-10 12:32] VITALS: BP 138/89
[2017-06-10 19:40] VITALS: BP 165/66
[2017-06-11 01:31] VITALS: BP 118/73
[2017-06-11 07:03] VITALS: BP 125/77
[2017-06-11 14:07] VITALS: BP 124/75
[2017-06-11 19:24] VITALS: BP 133/84
[2017-06-12 01:15] VITALS: BP 123/68
[2017-06-12 07:51] VITALS: BP 122/73
[2017-06-12 13:27] VITALS: BP 143/92
[2017-06-12] MEDS: ARTIFICIAL TEARS OPHTH SOLN 15ML EACHEYE PRN (13:42)
[2017-06-12 19:22] VITALS: BP 151/91
[2017-06-13 01:54] VITALS: BP 132/78
[2017-06-13 07:30] VITALS: BP 121/72
[2017-06-13 12:23] VITALS: BP 130/81
[2017-06-13 20:17] VITALS: BP 111/68
[2017-06-14 01:18] VITALS: BP 116/73
[2017-06-14 06:59] VITALS: BP 128/76
[2017-06-14 13:49] VITALS: BP 149/90
[2017-06-14 19:49] VITALS: BP 131/80
[2017-06-15 03:30] VITALS: BP 120/69
[2017-06-15 06:45] VITALS: BP 120/74
[2017-06-15 14:00] VITALS: BP 145/88
[2017-06-15 19:25] VITALS: BP 148/90
[2017-06-16 03:33] VITALS: BP 136/82
[2017-06-16 08:08] VITALS: BP 122/79
[2017-06-16 12:01] VITALS: BP 131/81
[2017-06-16 20:00] VITALS: BP 137/76
[2017-06-17 02:00] VITALS: BP 115/69
[2017-06-17 06:45] VITALS: BP 108/68
[2017-06-17 13:17] VITALS: BP 138/81
[2017-06-17 19:27] VITALS: BP 128/80
[2017-06-18 01:31] VITALS: BP 123/74
[2017-06-18 06:36] VITALS: BP 123/74
[2017-06-18 12:30] VITALS: BP 134/80
[2017-06-18 19:37] VITALS: BP 147/71
[2017-06-19 01:11] VITALS: BP 130/79
[2017-06-19 06:46] VITALS: BP 125/84
[2017-06-19 13:35] VITALS: BP 135/83
[2017-06-19 19:13] VITALS: BP 139/84
[2017-06-20 01:12] VITALS: BP 125/72
[2017-06-20 07:19] VITALS: BP 127/74
[2017-06-20 14:48] VITALS: BP 121/81
[2017-06-20 19:07] VITALS: BP 129/81
[2017-06-21 01:57] VITALS: BP 116/73
[2017-06-21 07:10] VITALS: BP 125/73
[2017-06-21 14:00] VITALS: BP 132/84
[2017-06-21 18:30] VITALS: BP 138/83
[2017-06-22 01:31] VITALS: BP 118/73
[2017-06-22 06:41] VITALS: BP 125/75
[2017-06-22 13:47] VITALS: BP 122/87
[2017-06-22 20:00] VITALS: BP 131/78
[2017-06-23 03:14] VITALS: BP 130/73
[2017-06-23 07:44] VITALS: BP 116/72
[2017-06-23 20:07] VITALS: BP 142/90
[2017-06-24 00:40] VITALS: BP 122/75
[2017-06-24 06:43] VITALS: BP 116/75
[2017-06-24 13:58] VITALS: BP 119/69
[2017-06-24 19:06] VITALS: BP 147/89
[2017-06-25 01:12] VITALS: BP 139/82
[2017-06-25 07:04] VITALS: BP 121/71
[2017-06-25 13:06] VITALS: BP 134/84
[2017-06-25 19:05] VITALS: BP 154/93
[2017-06-26 01:20] VITALS: BP 147/86
[2017-06-26 06:57] VITALS: BP 135/78
[2017-06-26 12:48] VITALS: BP 122/85
[2017-06-26 19:03] VITALS: BP 154/89
[2017-06-27 01:09] VITALS: BP 146/82
[2017-06-27 06:35] VITALS: BP 130/69
[2017-06-27 12:04] VITALS: BP 135/82
[2017-06-27 18:40] VITALS: BP 147/78
[2017-06-28 01:07] VITALS: BP 122/76
[2017-06-28 07:20] VITALS: BP 135/79
[2017-06-28 14:30] VITALS: BP 141/89
[2017-06-28 20:33] VITALS: BP 146/72
[2017-06-29 00:44] VITALS: BP 122/75
[2017-06-29 08:00] VITALS: BP_SYST 118; BP_SYST 121; BP_DIAS 71; BP_DIAS 73
[2017-06-29 15:39] VITALS: BP 146/72
[2017-06-29 18:53] VITALS: BP 152/80
[2017-06-30 00:34] VITALS: BP 122/73
[2017-06-30 07:55] VITALS: BP 153/84
[2017-06-30 12:50] VITALS: BP 139/82
[2017-06-30 18:31] VITALS: BP 130/83
[2017-07-01 00:34] VITALS: BP 126/72
[2017-07-01 08:17] VITALS: BP 112/69
[2017-07-01 15:40] VITALS: BP 150/89
[2017-07-01 19:39] VITALS: BP 138/77
[2017-07-02 02:15] VITALS: BP 108/64
[2017-07-02 13:34] VITALS: BP 144/80
[2017-07-02 19:50] VITALS: BP 166/90
[2017-07-03 00:29] VITALS: BP 111/69
[2017-07-03 09:05] VITALS: BP 146/81
[2017-07-03 13:00] VITALS: BP 125/75
[2017-07-03 19:33] VITALS: BP 151/94
[2017-07-04 01:14] VITALS: BP 127/73
[2017-07-04 06:42] VITALS: BP 128/77
[2017-07-04 12:27] VITALS: BP 137/90
[2017-07-04 19:22] VITALS: BP 118/74
[2017-07-05 01:17] VITALS: BP 112/64
[2017-07-05 06:40] VITALS: BP 134/75
[2017-07-05 12:24] VITALS: BP 138/86
[2017-07-05 18:47] VITALS: BP 127/72
[2017-07-06 00:14] VITALS: BP 112/64
[2017-07-06 06:05] VITALS: BP 110/57
[2017-07-06 13:17] VITALS: BP 141/85
[2017-07-06 18:45] VITALS: BP 135/87
[2017-07-07 01:48] VITALS: BP 135/65
[2017-07-07 06:53] VITALS: BP 132/58
[2017-07-07 14:00] VITALS: BP 130/65
[2017-07-07 20:54] VITALS: BP 155/89
[2017-07-08 01:21] VITALS: BP 145/91
[2017-07-08 07:00] VITALS: BP 135/82
[2017-07-08 14:53] VITALS: BP 125/85
[2017-07-08 19:20] VITALS: BP 152/94
[2017-07-09 01:13] VITALS: BP 149/88
[2017-07-09 07:15] VITALS: BP 119/76
[2017-07-09 13:42] VITALS: BP 135/83
[2017-07-09 19:30] VITALS: BP 146/80
[2017-07-10 02:33] VITALS: BP 149/80
[2017-07-10 06:39] VITALS: BP 120/73
[2017-07-10 14:30] VITALS: BP 134/88
[2017-07-10 19:12] VITALS: BP 138/84
[2017-07-11 01:02] VITALS: BP 154/86
[2017-07-11 07:45] VITALS: BP 120/68
[2017-07-11 09:17] LABS: PPD INJECT PLACED
== END 2017-07-11 11:04 | disposition home or self-care (01) | DRG 682 ==
LOC: ED 03:30 → EDIP 03:38 → SUATTDRO 03:45 → 3NE 04:35
PROVIDERS: ATTEND Hospitalist
DX: N17.0 Acute kidney failure with tubular necrosis (principal); G93.41 Metabolic encephalopathy; N39.0 Urinary tract infection, site not specified; F03.90 Unspecified dementia, unspecified severity, without behavioral disturbance, psychotic disturbance, mood disturbance, and anxiety; E86.0 Dehydration; F22 Delusional disorders; W19.XXXA Unspecified fall, initial encounter; G31.84 Mild cognitive impairment of uncertain or unknown etiology; D72.829 Elevated white blood cell count, unspecified; B95.5 Unspecified streptococcus as the cause of diseases classified elsewhere; F09 Unspecified mental disorder due to known physiological condition; R62.7 Adult failure to thrive; T63.441A Toxic effect of venom of bees, accidental (unintentional), initial encounter; Z80.9 Family history of malignant neoplasm, unspecified; Z91.83 Wandering in diseases classified elsewhere; Y93.89 Activity, other specified; Y92.89 Other specified places as the place of occurrence of the external cause
CPT/HCPCS: 36415; 70450; 70553; 71010; 80048; 80053; 80307; 80329; 81001; 82140; 82565; 82607; 82746; 84443; 85025; 86580; 87086; 93005; 96360; J0696; J1650; J3480; 92523-GN; G0479; G0480; J7030